=== PATIENT | male | born 1965 | race Caucasian/White ===

== ENCOUNTER → 2018-02-04 13:19 | Outpatient (REF) | payer BC, SELFPAY | LOC: LAB 13:19 | PROVIDERS: PCP Emergency Medicine; Visit Provider Emergency Medicine | DX: L02.31 Cutaneous abscess of buttock (principal) | CPT/HCPCS: 87070; 87077; 87186; 87205 ==

== ENCOUNTER 2018-03-05 15:00 | Outpatient (RCR) | payer BC, SELFPAY ==
--- NOTE | 2018-02-04 13:52 | HMH.PTOPWND ---
Rehab Outpt Wound Evaluation Rehab OP Wound Evaluation Start: 02/04/18 13:36 Freq: Status: Active Protocol: Document 02/04/18 13:36 PWARMANDO (Rec: 02/04/18 13:52 [email or web address] [id number]) Electronically Signed By Bandar Vaughn, PT 02/04/18 13:36 Subjective/History History History This is the initial OP PT wound clinic evaluation for Norbert Cortes. Pt is a 53 y/o male referred to PT for wound care on non-healing wound on L ischial tuberosity. Pt rpeorts wound has been present for several months but does not know the cause but thinks maybe the smoking bench is hard metal, and I sit on it . Pt rpeorts he chain smokes 1 1/2 packs a day on the bench. Subjective Subjective Pt does c/o pain w/ pressure Wound Eval Wound Left Lower Buttock Wound Type Pressure Ulcer Is This a Chronic Wound Yes Wound Staging Stage II Query Text:Stage I - Unbroken, red skin, no blanching. Stage II - Skin broken, superficial skin loss involving epidermis alone or also dermis. Partial loss of skin layers. Stage III - Pressure area involves epidermis, dermis and subcutaneous tissue, full thickness skin loss. Stage IV - Pressure area involves epidermis, subcutaneous tissue, bone and other supportive tissue. Full thickness skin loss with extensive destruction of underlying tissue and structures. Wound Length (cm) 2.0 Wound Width (cm) 1.5 Wound Depth (cm) 0.2 Wound Bed Appearance Dusky Red Yellow Percentage Granulated (%) 80 Percentage of Slough (%) 20 Wound Margins Description Well Defined Drainage Amount None Drainage Odor No Odor Dressing Status Changed Wound Topical Solution/Irrigant Antibiotic Irrigant Primary Dressing Hydrocolloid Wound Debridement Amount of Tissue None Removed Wound Problems/Impairments Impairments Problems/Impairmments Palpation Tenderness Impaired Sitting Wound Care Needs Subjective C/O Pain Prognosis Rehab Potential Poor Comment Pt is probabl
== END 2018-03-05 15:01 | disposition home or self-care (01) ==
LOC: PT 15:00
PROVIDERS: PCP Emergency Medicine; Visit Provider Emergency Medicine
DX: S31.829A Unspecified open wound of left buttock, initial encounter (principal)
CPT/HCPCS: 87070; 87205; 97161; 97597

== ENCOUNTER 2018-05-13 13:00 | Outpatient (RCR) | payer BC, SELFPAY ==
--- NOTE | 2018-04-22 13:24 | HMH.PTOPWND ---
Rehab Outpt Wound Evaluation Rehab OP Wound Evaluation Start: 04/22/18 13:17 Freq: Status: Active Protocol: Document 04/22/18 13:17 SHANTA (Rec: 04/22/18 13:23 SHANTA [id number]) Electronically Signed By Bandar Vaughn, PT 04/22/18 13:17 Subjective/History History History Pt reports to PT w/ c/ new wound on L buttocks. PT rpeorts wound came up a few weeks ago and it was a boil that popped - pt had a pressure sore at same spot that had healed earlier in the year. Subjective Subjective c/o pain w/ debridement - pt is a heavy smoker Wound Eval Wound Left Lower Buttock Wound Type Pressure Ulcer Wound Staging Stage II Query Text:Stage I - Unbroken, red skin, no blanching. Stage II - Skin broken, superficial skin loss involving epidermis alone or also dermis. Partial loss of skin layers. Stage III - Pressure area involves epidermis, dermis and subcutaneous tissue, full thickness skin loss. Stage IV - Pressure area involves epidermis, subcutaneous tissue, bone and other supportive tissue. Full thickness skin loss with extensive destruction of underlying tissue and structures. Wound Length (cm) 1.0 Wound Width (cm) 0.7 Wound Bed Appearance Dusky Red Percentage Granulated (%) 75 Percentage of Slough (%) 25 Percentage of Eschar (Yellow) (%) 25 Wound Margins Description Well Defined Surrounding Tissue Appearance [place] Drainage Amount None Drainage Odor No Odor Dressing Status Open to Air Primary Dressing Biosynthetic Dressing Comment purocol matrix Wound Secondary Dressing Type Film Dressing Wound Debridement Method Sharps Wound Debridement Amount of Tissue Minimal Removed Wound Debridement Result Patient Unable to Tolerate Dressing Change Date 04/22/18 Dressing Change Patient Tolerance Tolerated Well Wound Problems/Impairments Impairments Problems/Impairmments Palpation Tenderness Wound Care Needs Subjective C/O Pain Prognosis Rehab Potential Fair Clinical Impression Consistent with Diagnosis Yes Short Term Goals Number of Weeks 4 Decrease Wound Area Yes: 50%
== END 2018-05-13 13:01 | disposition home or self-care (01) ==
LOC: PT 13:00
PROVIDERS: PCP Emergency Medicine; Visit Provider Emergency Medicine
DX: S31.829A Unspecified open wound of left buttock, initial encounter (principal)
CPT/HCPCS: 97161

== ENCOUNTER → 2018-05-15 09:47 | Outpatient (CLI) | payer BC, SELFPAY ==
--- NOTE | 2018-05-15 09:51 | XR_ITS ---
XR elbow LT min 3V HISTORY: Soft tissue mass of elbow ITS.REASON: left elbow pain ORDERING PHYSICIAN: Lizandro Blackman MD PATIENT AGE: 53 years COMPARISON: None FINDINGS: No bony or joint is evident. There is prominent increase in soft tissue density involving the medial aspect of the olecranon region measuring 7.9 cm consistent with olecranon bursitis. IMPRESSION: Olecranon bursitis
== END ==
PROVIDERS: PCP Emergency Medicine; Visit Provider Orthopaedic Surgery
DX: M25.522 Pain in left elbow (principal)
CPT/HCPCS: 73080

== ENCOUNTER → 2018-06-02 09:13 | Outpatient (CLI) | payer BC, SELFPAY ==
--- NOTE | 2018-06-02 09:23 | XR_ITS ---
XR chest 2V HISTORY: Smoker, tobacco use, cough, COPD ITS.REASON: TOBACCO DEPENDENT ORDERING PHYSICIAN: Lizandro Blackman MD PATIENT AGE: 53 years COMPARISON: 05/21/2018 FINDINGS: The cardiomediastinal silhouette and pulmonary vascularity are within normal limits. Hyperinflation with attenuation of the peripheral pulmonary vessels consistent with COPD with coarsening of the bronchovascular markings as before. Calcified node is present in the right hilum. There is mild wedging of T9 as before. IMPRESSION: No change from the previous exam. COPD. Mild wedging of T9 of approximately 30%.
[2018-06-02 10:04] LABS: Basophils # 0.1 K/mm3 (0-0.2); Eosinophils # 0.2 K/mm3 (0.0-0.4); Eosinophils % 2.7 % (0.1-12.0); Hematocrit 38.6 % (42.0-52.0); Hemoglobin 12.6 g/dL (14.1-18.0); Lymphocytes # 2.2 K/mm3 (0.7-4.5); Lymphocytes % 31.3 % (10-50); Mean Corpuscular HGB Conc 32.6 g/dL (31.8-35.4); Mean Corpuscular Hemoglobin 29.5 pg (27.0-31.2); Mean Corpuscular Volume 90.5 fl (80-94); Mean Platelet Volume 7.5 fl (7.4-10.4); Monocytes # 0.5 K/mm3 (0.1-1.0); Monocytes % 7.2 % (1.7-9.3); Neutrophils % 57.7 % (37.0-80.0); Platelet Count 277 K/mm3 (142-424); Red Blood Count 4.27 M/mm3 (4.60-6.20); Red Cell Distribution Width 14.1 % (11.5-17.5); White Blood Count 6.9 K/mm3 (4.8-10.8)
[2018-06-02 10:40] LABS: Erythrocyte Sedimentation Rate 10 mm/hr (0-20)
[2018-06-02 12:04] LABS: Anion Gap 14.1 mEq/L (5-15); Blood Urea Nitrogen 9 mg/dL (7-18); C-Reactive Protein 0.3 mg/L (0.0-0.9); Calcium 8.3 mg/dL (8.5-10.1); Carbon Dioxide 25 mmol/L (21.0-32.0); Chloride 102 mmol/L (98-107); Creatinine,Serum 0.98 mg/dL (0.70-1.30); Estimated Glomerular Filt Rate 80 ml/min (>60); GFR (African American) 97 ML/MIN (>60); Glucose 88 mg/dL (74-106); Potassium 4.1 mmoL/L (3.5-5.1); Sodium 137 mmol/L (136-145)
== END ==
PROVIDERS: PCP Emergency Medicine; Visit Provider Orthopaedic Surgery
DX: Z01.818 Encounter for other preprocedural examination (principal); M70.22 Olecranon bursitis, left elbow
CPT/HCPCS: 36415; 71046; 80048; 85025; 85651; 86140; 93005

== ENCOUNTER → 2018-07-23 11:03 | Outpatient (CLI) | payer BC, MEDICAID, SELFPAY ==
[2018-07-23 11:26] LABS: Basophils # 0.1 K/mm3 (0-0.2); Basophils % 0.7 % (0.1-2.0); Eosinophils # 0.1 K/mm3 (0.0-0.4); Eosinophils % 0.9 % (0.1-12.0); Hematocrit 40.4 % (42.0-52.0); Hemoglobin 12.8 g/dL (14.1-18.0); Lymphocytes # 2.4 K/mm3 (0.7-4.5); Lymphocytes % 25.2 % (10-50); Mean Corpuscular HGB Conc 31.8 g/dL (31.8-35.4); Mean Corpuscular Hemoglobin 28.5 pg (27.0-31.2); Mean Corpuscular Volume 89.5 fl (80-94); Mean Platelet Volume 7.7 fl (7.4-10.4); Monocytes # 0.7 K/mm3 (0.1-1.0); Monocytes % 7.6 % (1.7-9.3); Neutrophils # 6.4 K/mm3 (1.8-7.8); Neutrophils % 65.7 % (37.0-80.0); Platelet Count 326 K/mm3 (142-424); Red Blood Count 4.51 M/mm3 (4.60-6.20); Red Cell Distribution Width 14.2 % (11.5-17.5); White Blood Count 9.7 K/mm3 (4.8-10.8)
[2018-07-23 12:16] LABS: C-Reactive Protein 9.1 mg/L (0.0-0.9)
[2018-07-23 12:25] LABS: Erythrocyte Sedimentation Rate 17 mm/hr (0-20)
== END ==
PROVIDERS: Visit Provider Orthopaedic Surgery
DX: M71.122 Other infective bursitis, left elbow (principal)
CPT/HCPCS: 36415; 85025; 85651; 86140; 87070; 87077; 87186; 87205

== ENCOUNTER → 2018-07-30 12:21 | Outpatient (CLI) | payer BC, MEDICAID, SELFPAY ==
[2018-07-30 13:00] LABS: Basophils # 0.1 K/mm3 (0-0.2); Basophils % 0.9 % (0.1-2.0); Eosinophils # 0.1 K/mm3 (0.0-0.4); Eosinophils % 1.5 % (0.1-12.0); Hematocrit 37.3 % (42.0-52.0); Hemoglobin 11.5 g/dL (14.1-18.0); Lymphocytes # 2.4 K/mm3 (0.7-4.5); Lymphocytes % 35.7 % (10-50); Mean Corpuscular HGB Conc 30.9 g/dL (31.8-35.4); Mean Corpuscular Hemoglobin 27.8 pg (27.0-31.2); Mean Platelet Volume 7.4 fl (7.4-10.4); Monocytes # 0.4 K/mm3 (0.1-1.0); Monocytes % 5.5 % (1.7-9.3); Neutrophils # 3.8 K/mm3 (1.8-7.8); Neutrophils % 56.4 % (37.0-80.0); Platelet Count 350 K/mm3 (142-424); Red Blood Count 4.14 M/mm3 (4.60-6.20); Red Cell Distribution Width 14.3 % (11.5-17.5); White Blood Count 6.8 K/mm3 (4.8-10.8)
[2018-07-30 13:20] LABS: C-Reactive Protein 1.4 mg/L (0.0-0.9)
[2018-07-30 13:50] LABS: Erythrocyte Sedimentation Rate 23 mm/hr (0-20)
--- NOTE | 2018-07-30 15:05 | XR_ITS ---
XR elbow LT min 3V HISTORY: Pain and swelling with limited range of motion ITS.REASON: POST OP INFECTION LT ELBOW ORDERING PHYSICIAN: Lizandro Blackman MD PATIENT AGE: 53 years COMPARISON: 05/15/2018 FINDINGS: Soft tissue swelling is present at the olecranon region. There is a small defect within the soft tissues posteriorly may be due to the drainage site. No displaced fat pad or bony erosive process. IMPRESSION: Moderate soft tissue swelling which is less prominent compared to the previous exam
[2018-07-30 16:16] LABS: Anion Gap 13.7 mEq/L (5-15); Blood Urea Nitrogen 10 mg/dL (7-18); Calcium 8.5 mg/dL (8.5-10.1); Carbon Dioxide 24 mmol/L (21.0-32.0); Chloride 103 mmol/L (98-107); Creatinine,Serum 1.06 mg/dL (0.70-1.30); Estimated Glomerular Filt Rate 73 ml/min (>60); GFR (African American) 89 ML/MIN (>60); Glucose 150 mg/dL (74-106); Potassium 4.7 mmoL/L (3.5-5.1); Sodium 136 mmol/L (136-145)
== END ==
PROVIDERS: Visit Provider Orthopaedic Surgery
DX: L08.9 Local infection of the skin and subcutaneous tissue, unspecified (principal)
CPT/HCPCS: 36415; 73080; 80048; 85025; 85651; 86140; 87070; 87077; 87186; 87205

== ENCOUNTER 2018-08-31 15:00 | Outpatient (RCR) | payer BC, SELFPAY ==
--- NOTE | 2018-08-17 15:57 | HMH.PTOPWND ---
Rehab Outpt Wound Evaluation Rehab OP Wound Evaluation Start: 08/17/18 15:47 Freq: Status: Active Protocol: Document 08/17/18 15:50 SRAVAN (Rec: 08/17/18 15:57 PHORNE [id number]) Electronically Signed By Hardeep Kwon, PT 08/17/18 15:50 Subjective/History History History Pt is 53 yowm who presents ~ 2 wks s/p left elbow I&D due to infected seroma after left olecranon bursae removal. He reports no c/o pain currently and no problems after OR. He presents with left elbow in post-op splint with moderate amt of serous drainage noted on wound dressing. PMH of seizures and is a smoker. Wound Eval Wound Left Elbow Wound Type Post-op I&D Is This a Chronic Wound No Wound Length (cm) 3.0 Wound Width (cm) 1.5 Wound Bed Appearance Beefy Red Percentage Granulated (%) 100 Wound Margins Description Well Defined Undermining Position 3 Undermining Length (cm) 2.4 Tunneling Position 12 Tunneling Depth (cm) 4.2 Drainage Description Serous Drainage Amount Moderate Packing Type Specialty Absorptive Comment Opticel Ag Primary Dressing Non-Adherent Gauze Pad Wound Secondary Dressing Type Gauze Pad Gauze Roll/Wrap Elastic Bandage Dressing Change Patient Tolerance Tolerated Well Wound Problems/Impairments Impairments Problems/Impairmments Impaired Range of Motion Impaired Strength Increased Edema Wound Care Needs Subjective C/O Pain Impaired Self Care/Self Management Prognosis Rehab Potential Fair Clinical Impression Consistent with Diagnosis Yes Short Term Goals Number of Weeks 4 Decrease Wound Area Yes: by 25% Decrease Drainage Yes: by 50% Halfway Goals Number of Weeks 8 Decrease Wound Area Yes: by 75% Decrease Drainage Yes: by 100% Patient to be Ind w/ Home Wound Care/ Yes Dressing Changes Outpatient Therapy Plan of Care Treatment Plan May Include Therapeutic Exercise Including Home Yes Exercise Program Manual Therapy Techniques Yes Neuromuscular Re-education
== END 2018-08-31 15:05 | disposition home or self-care (01) ==
LOC: PT 15:00
PROVIDERS: Visit Provider Orthopaedic Surgery
DX: M71.022 Abscess of bursa, left elbow (principal); M71.122 Other infective bursitis, left elbow
CPT/HCPCS: 97162; 97597

== ENCOUNTER → 2018-09-08 14:16 | Outpatient (CLI) | payer BC, SELFPAY ==
[2018-09-08 14:35] LABS: Basophils # 0.1 K/mm3 (0-0.2); Basophils % 1.2 % (0.1-2.0); Eosinophils # 0.1 K/mm3 (0.0-0.4); Eosinophils % 2.2 % (0.1-12.0); Hematocrit 37.8 % (42.0-52.0); Lymphocytes # 2.4 K/mm3 (0.7-4.5); Lymphocytes % 41.5 % (10-50); Mean Corpuscular HGB Conc 31.7 g/dL (31.8-35.4); Mean Corpuscular Hemoglobin 27.9 pg (27.0-31.2); Mean Corpuscular Volume 87.9 fl (80-94); Mean Platelet Volume 7.8 fl (7.4-10.4); Monocytes # 0.5 K/mm3 (0.1-1.0); Monocytes % 7.9 % (1.7-9.3); Neutrophils # 2.7 K/mm3 (1.8-7.8); Neutrophils % 47.2 % (37.0-80.0); Platelet Count 321 K/mm3 (142-424); White Blood Count 5.7 K/mm3 (4.8-10.8)
[2018-09-08 15:01] LABS: Anion Gap 14.1 mEq/L (5-15); Blood Urea Nitrogen 10 mg/dL (7-18); Calcium 8.5 mg/dL (8.5-10.1); Carbon Dioxide 23 mmol/L (21.0-32.0); Chloride 104 mmol/L (98-107); Creatinine,Serum 1.04 mg/dL (0.70-1.30); Estimated Glomerular Filt Rate 75 ml/min (>60); GFR (African American) 91 ML/MIN (>60); Glucose 114 mg/dL (74-106); Potassium 4.1 mmoL/L (3.5-5.1); Sodium 137 mmol/L (136-145)
[2018-09-08 15:17] LABS: Erythrocyte Sedimentation Rate 9 mm/hr (0-20)
== END ==
PROVIDERS: Visit Provider Orthopaedic Surgery
DX: Z01.818 Encounter for other preprocedural examination (principal); M71.122 Other infective bursitis, left elbow
CPT/HCPCS: 36415; 80048; 85025; 85651; 86140

== ENCOUNTER → 2018-10-01 10:35 | Outpatient (CLI) | payer BC, SELFPAY ==
[2018-10-01 11:22] LABS: Basophils # 0.1 K/mm3 (0-0.2); Basophils % 0.4 % (0.1-2.0); Eosinophils # 0.1 K/mm3 (0.0-0.4); Eosinophils % 1.3 % (0.1-12.0); Hematocrit 38.5 % (42.0-52.0); Hemoglobin 12.4 g/dL (14.1-18.0); Lymphocytes # 2.9 K/mm3 (0.7-4.5); Lymphocytes % 26.6 % (10-50); Mean Corpuscular HGB Conc 32.1 g/dL (31.8-35.4); Mean Corpuscular Hemoglobin 28.6 pg (27.0-31.2); Mean Corpuscular Volume 88.9 fl (80-94); Mean Platelet Volume 7.8 fl (7.4-10.4); Monocytes # 0.7 K/mm3 (0.1-1.0); Neutrophils # 7.1 K/mm3 (1.8-7.8); Neutrophils % 65.7 % (37.0-80.0); Platelet Count 288 K/mm3 (142-424); Red Blood Count 4.33 M/mm3 (4.60-6.20); Red Cell Distribution Width 15.3 % (11.5-17.5); White Blood Count 10.8 K/mm3 (4.8-10.8)
[2018-10-01 11:39] LABS: C-Reactive Protein 0.6 mg/L (0.0-0.9)
[2018-10-01 12:57] LABS: Erythrocyte Sedimentation Rate 5 mm/hr (0-20)
== END ==
PROVIDERS: Visit Provider Orthopaedic Surgery
DX: Z09 Encounter for follow-up examination after completed treatment for conditions other than malignant neoplasm (principal); M71.122 Other infective bursitis, left elbow
CPT/HCPCS: 36415; 85025; 85651; 86140

== ENCOUNTER → 2018-10-08 08:34 | Outpatient (CLI) | payer BC, SELFPAY ==
[2018-10-08 08:46] LABS: Basophils # 0.1 K/mm3 (0-0.2); Basophils % 0.9 % (0.1-2.0); Eosinophils # 0.3 K/mm3 (0.0-0.4); Hematocrit 41.5 % (42.0-52.0); Hemoglobin 13.4 g/dL (14.1-18.0); Lymphocytes # 3.5 K/mm3 (0.7-4.5); Lymphocytes % 41.5 % (10-50); Mean Corpuscular HGB Conc 32.3 g/dL (31.8-35.4); Mean Corpuscular Hemoglobin 28.8 pg (27.0-31.2); Mean Corpuscular Volume 89.2 fl (80-94); Mean Platelet Volume 7.6 fl (7.4-10.4); Monocytes # 0.5 K/mm3 (0.1-1.0); Monocytes % 5.3 % (1.7-9.3); Neutrophils # 4.2 K/mm3 (1.8-7.8); Neutrophils % 49.4 % (37.0-80.0); Platelet Count 353 K/mm3 (142-424); Red Blood Count 4.65 M/mm3 (4.60-6.20); Red Cell Distribution Width 15.5 % (11.5-17.5); White Blood Count 8.5 K/mm3 (4.8-10.8)
[2018-10-08 09:15] LABS: C-Reactive Protein < 0.2 mg/L (0.0-0.9)
[2018-10-08 09:49] LABS: Erythrocyte Sedimentation Rate 10 mm/hr (0-20)
== END ==
PROVIDERS: Visit Provider Orthopaedic Surgery
DX: T81.31XA Disruption of external operation (surgical) wound, not elsewhere classified, initial encounter (principal); Z09 Encounter for follow-up examination after completed treatment for conditions other than malignant neoplasm
CPT/HCPCS: 36415; 85025; 85651; 86140

== ENCOUNTER → 2018-10-13 15:45 | Outpatient (CLI) | payer BC, SELFPAY | PROVIDERS: Visit Provider Orthopaedic Surgery | DX: M71.122 Other infective bursitis, left elbow (principal) | CPT/HCPCS: 87070; 87075; 87205 ==

== ENCOUNTER → 2018-11-04 13:49 | Outpatient (CLI) | payer BC, SELFPAY ==
--- NOTE | 2018-11-04 14:02 | XR_ITS ---
XR elbow LT min 3V HISTORY: ITS.REASON: LT ELBOW PAIN ORDERING PHYSICIAN: Lizandro Blackman MD PATIENT AGE: 53 years COMPARISON: None FINDINGS: No bony or joint abnormality. There is increased soft tissue density along the olecranon region and on the frontal view medial to the coronoid process. IMPRESSION: No acute fracture or dislocation. Nonspecific soft tissue calcification about the elbow
[2018-11-04 15:21] LABS: Erythrocyte Sedimentation Rate 9 mm/hr (0-20)
[2018-11-04 15:34] LABS: Alanine Aminotransferase 24 U/L (12-78); Albumin Level 3.5 gm/dL (3.4-5.0); Alkaline Phosphatase 56 U/L (46-116); Anion Gap 13.6 mEq/L (5-15); Aspartate Amino Transferase 12 U/L (15-37); Bilirubin,Total 0.3 mg/dL (0.2-1.0); Blood Urea Nitrogen 11 mg/dL (7-18); C-Reactive Protein 1.6 mg/L (0.0-0.9); Calcium 9.1 mg/dL (8.5-10.1); Carbon Dioxide 25 mmol/L (21.0-32.0); Chloride 104 mmol/L (98-107); Estimated Glomerular Filt Rate 78 ml/min (>60); GFR (African American) 95 ML/MIN (>60); Globulin 3.4 gm/dl (1.3-3.2); Glucose 99 mg/dL (74-106); Potassium 4.6 mmoL/L (3.5-5.1); Sodium 138 mmol/L (136-145); Total Protein,Serum 6.9 gm/dL (6.4-8.2)
== END ==
PROVIDERS: Visit Provider Orthopaedic Surgery
DX: M71.129 Other infective bursitis, unspecified elbow (principal); Z01.818 Encounter for other preprocedural examination
CPT/HCPCS: 36415; 73080; 80053; 85651; 86140

== ENCOUNTER → 2018-11-24 10:09 | Outpatient (CLI) | payer BC, SELFPAY ==
[2018-11-24 10:34] LABS: Basophils # 0.1 K/mm3 (0-0.2); Basophils % 0.8 % (0.1-2.0); Eosinophils # 0.1 K/mm3 (0.0-0.4); Eosinophils % 1.6 % (0.1-12.0); Hematocrit 42.7 % (42.0-52.0); Hemoglobin 13.8 g/dL (14.1-18.0); Lymphocytes # 2.5 K/mm3 (0.7-4.5); Lymphocytes % 31.1 % (10-50); Mean Corpuscular HGB Conc 32.4 g/dL (31.8-35.4); Mean Corpuscular Hemoglobin 29.1 pg (27.0-31.2); Mean Corpuscular Volume 89.8 fl (80-94); Mean Platelet Volume 7.8 fl (7.4-10.4); Monocytes # 0.5 K/mm3 (0.1-1.0); Monocytes % 6.4 % (1.7-9.3); Neutrophils # 4.8 K/mm3 (1.8-7.8); Neutrophils % 60.2 % (37.0-80.0); Platelet Count 290 K/mm3 (142-424); Red Blood Count 4.76 M/mm3 (4.60-6.20); Red Cell Distribution Width 14.8 % (11.5-17.5)
[2018-11-24 11:31] LABS: Uric Acid 3.2 mg/dL (2.6-7.2)
[2018-11-24 11:34] LABS: C-Reactive Protein < 0.2 mg/L (0.0-0.9)
[2018-11-24 12:15] LABS: Erythrocyte Sedimentation Rate 4 mm/hr (0-20)
[2018-11-26 14:24] LABS: Clarity,Fluid Hazy (Clear); Color,Fluid Straw (Yellow); Eosinophils,Fluid 1 % (Not Estab.); Lymphocytes,Fluid 79 % (Not Estab.); Macrophages,Fluid 18 % (Not Estab.); Nucleated cells, Syn. Fluid 459 cells/uL (0-200); Polys,Fluid 2 % (Not Estab.); RBC,Fluid 19000 /uL (Not Estab.)
== END ==
PROVIDERS: Visit Provider Orthopaedic Surgery
DX: M71.122 Other infective bursitis, left elbow (principal)
CPT/HCPCS: 36415; 84550; 85025; 85651; 86140; 87070; 87205; 89051

== ENCOUNTER → 2020-04-13 12:28 | Outpatient (CLI) | payer BC, SELFPAY ==
--- NOTE | 2020-04-13 12:46 | MR_ITS ---
PROCEDURE: MR HEAD/BRAIN WO/W CON Referring Doctor: Jessica Martinez Patient Age:55Y CLINICAL INDICATION: seizures new onset the COMPARISON: No exams were available for comparison TECHNIQUE: Pre contrast imaging includes multiplanar imaging performed utilizing T1, T2, FLAIR imaging as well as ADC and diffusion weighted axial images on pre contrast study. The postcontrast imaging performed following 17 mL, ProHance performed in the axial and coronal plane FINDINGS: Today's MR brain reveals no mass lesions.. No abnormal areas of enhancement.. Normal anatomy. Ventricles and basal cisterns appears satisfactory. King-white matter interface overall satisfactory with no prominent findings . Region of Hippocampus and uncus appear to be maintained with at normal signal on coronal images The posterior fossa appears normal. The cranial cervical junction appears normal. Sella pituitary appears satisfactory. On close inspection note a tiny focus of increased signal at the depth of a sulcus, left parietal region precentral region. More likely this merely reflection of king matter ribbon at the base of the sulcus, rather than a subtle small white matter high signal focus (axial image 19, coronal image 15) thus not felt to be of significance Other extracranial observations: Note minimal mucosal thickening at the left mastoid tip air cells (axial image 5) barely appreciable most sequences.. Otherwise mastoid air cells elsewhere unremarkable. IAC's symmetric CP angles clear. The visualized paranasal sinuses are fairly clear with only borderline-mild mucosal thickening at the anterior ethmoid air cells. There is deviation nasal septum convexity to the left and the [id number] engorgement nasal turbinates particularly noting moderate engorgement of the inferior turbinate on the right IMPRESSION: No significant intracranial findings. . No mass lesion. No abnormal areas of enhancement.. No infarct . Minor other observations in text Dictated by: Pablo Sandoval MD 04/15/2020 11:48 Pablo Sandoval MD in [place] 04/15/2020 11:48
[2020-04-13 12:58] LABS: Blood Urea Nitrogen 14 mg/dl (9-20); Estimated Glomerular Filt Rate 78 ml/min (>60); GFR (African American) 94 ML/MIN (>60)
== END ==
PROVIDERS: Visit Provider Specialist
DX: R55 Syncope and collapse (principal); R00.9 Unspecified abnormalities of heart beat; R03.0 Elevated blood-pressure reading, without diagnosis of hypertension; I95.9 Hypotension, unspecified; R56.9 Unspecified convulsions
CPT/HCPCS: 36415; 70553; 82565; 84520; 93225; 93226; A9576

== ENCOUNTER → 2020-05-08 13:28 | Outpatient (CLI) | payer BC, SELFPAY ==
--- NOTE | 2020-05-08 13:29 | CA_ITS ---
APPROVED REPORT Power Transformer Repairer: Cara Trinidad RVT Laterality: Bilateral Study Quality: Good Indications: near syncope Risk Factors Hypertension: Hyperlipidemia Diabetes Smoking Doppler Spectral Velocity Analysis ECA (R) 87.70/17.10 cm/s ECA (L) 134.80/18.30 cm/s dICA (R) 76.40/36.00 cm/s dICA (L) 58.30/25.70 cm/s Cruz (R) 60.40/25.00 cm/s Cruz (L) 73.20/21.20 cm/s pICA (R) 57.10/21.80 cm/s pICA (L) 107.90/22.20 cm/s dCCA (R) 88.80/21.40 cm/s dCCA (L) 106.20/25.40 cm/s pCCA (R) 97.30/22.50 cm/s pCCA (L) 95.80/18.00 cm/s Vert (R) 44.40/14.60 cm/s Vert (L) 42.80/15.50 cm/s ICA/CCA 0.86 ICA/CCA 1.02 Findings Study suggests no evidence of stenosis of the right internal cartoid artery. Study suggests no evidence of stenosis of the left internal cartoid artery. Antegrade flow seen bilateral vertebral arteries. Conclusion Study suggests no evidence of stenosis of the right internal cartoid artery. Study suggests no evidence of stenosis of the left internal cartoid artery. Antegrade flow seen bilateral vertebral arteries. Electronically signed by : Jose J Henson MD 05/09/2020 17:36:24
--- NOTE | 2020-05-08 13:29 | CA_ITS ---
APPROVED REPORT EXAM: Comprehensive 2D, Doppler, and color-flow Echocardiogram Transit Worker: Lena Al CRT Ht: 6 ft 4 in Wt: 176lbs BSA: 2.10 BP: 139/63 mmHg Indications: COPD, Fatigue, Hyperlipidemia, Hypertension/HDD, GERD, ex smoker, Diabetes, tachycardia 2D Dimensions LVOT 2.11 cm (M/F) 1.5-2.5 M-Mode Dimensions RVDd 3.50 cm (0.9-2.6) LA Diam 3.52 cm (1.9-4.0) LVDd 5.89 cm (3.5-5.7) Ao Diam 4.12 cm (2.0-3.7) LVDs 3.57 cm (3.5-5.7) IVSd 1.21 cm (0.6-1.1) PWd 0.87 cm (0.6-1.1) EF (Teich) 69.10% FS 39.40% EDV (Teich) 172.50 mL ESV (Teich) 53.30 mL LV Diastology E Decel Time 123.00 (160-240 msec) E/A Ratio 0.72 MED E' 6.80 (< 7 cm/sec) E'/MED E' Ratio 7.40 (>14) LAT E' 8.50 (<10 cm/sec) E/LAT E' Ratio 5.92 (>14) Aortic Valve AI PHT 671.00 ms AO Peak GR. 9.20 mmHg Mitral Valve MV A Velocity 70.00 (40-130 cm/s) E/A Ratio 0.72 MV Decel. Time 123.00 (160-240 ms) Pulmonary Valve PV Peak Velocity 94.00 (50-150 cm/s) Tricuspid Valve TR P. Velocity 243.00 cm/s RAP Estimate 10.00 mmHg RVSP 33.60 mmHg Left Ventricle Left atrium is mildly enlarged, left ventricle is normal size, mild concentric left ventricular hypertrophy, visually estimated ejection fraction 55% with no regional wall motion abnormality, grade 1 diastolic dysfunction seen without tissue Doppler evidence of raise left atrial pressure. Right Ventricle Right atrium and right ventricle are mildly enlarged with normal contractility. Aortic Valve Aortic valve is minimally thickened and fibrosed, there is no aortic stenosis, there is mild aortic insufficiency. Mitral Valve Mitral valve is minimally thickened, there is mild mitral regurgitation. Tricuspid Valve Tricuspid valve is grossly normal, there is mild tricuspid regurgitation, tricuspid regurgitation jet velocity is inadequate for calculation of the right ventricular systolic pressure. Pulmonic Valve Pulmonic valve is poorly visualized. Great Vessels Aortic root is normal size. Pericardium No significant pericardial effusion noted. Conclusion 1. Biatrial enlargement, normal left ventricular size, mild concentric left ventricular hypertrophy, visually estimated ejection fraction 55% with no regional wall motion abnormality. Grade 1 diastolic dysfunction seen without tissue Doppler evidence of raise left atrial pressure. 2. Mildly enlarged right ventricle with normal contractility. 3. Mild aortic, mild mitral and tricuspid regurgitation. 4. No significant pericardial effusion noted. Electronically signed by : Keron Palomo, 05/08/2020 18:59:19
== END ==
PROVIDERS: PCP Emergency Medicine; Visit Provider Internal Medicine Cardiovascular Disease
DX: R55 Syncope and collapse (principal); R94.31 Abnormal electrocardiogram [ECG] [EKG]; R00.0 Tachycardia, unspecified
CPT/HCPCS: 93306; 93880

== ENCOUNTER 2020-06-01 14:40 | Emergency (ER) | payer BC, SELFPAY ==
[2020-06-01 14:47] VITALS: BP 110/68; PULSE 81; RESP 17; TEMP 36.7; O2SAT 99; BMI 21.9
--- NOTE | 2020-06-01 14:51 | XR_ITS ---
PROCEDURE: XR KNEE LT 3V CLINICAL INDICATION: FALL Pain COMPARISON: No exams were available for comparison FINDINGS: No fracture or dislocation. No lytic or blastic change. There is normal mineralization. There is ununited ossification center at the tibial tuberosity as a variant. Minimal osteoarthritic changes are present at the patellofemoral joint and there is minimal narrowing of the joint space medially. Other findings:None. IMPRESSION: Minimal osteoarthritic change Dictated by: Jose J Henson MD 06/01/2020 15:37 Jose J Henson MD in [place] 06/01/2020 15:37
--- NOTE | 2020-06-01 14:51 | XR_ITS ---
PROCEDURE: XR KNEE RT 3V CLINICAL INDICATION: FALL Right knee pain COMPARISON: CR XR KNEE LT 3V from 06/01/2020 FINDINGS: No fracture or dislocation. No lytic or blastic change. There is normal mineralization. The joint spaces are well-preserved. No significant degenerative/arthritic changes. No erosive changes evident. Other findings:None. IMPRESSION: No acute findings. Dictated by: Jose J Henson MD 06/01/2020 15:36 Jose J Henson MD in [place] 06/01/2020 15:36
--- NOTE | 2020-06-01 15:38 | HMH.EDGENADL ---
ED Disposition Clinical Impression: Fall Qualifiers: Encounter type: initial encounter Qualified Code(s): W19.XXXA - Unspecified fall, initial encounter Syncope Qualifiers: Syncope type: unspecified Qualified Code(s): R55 - Syncope and collapse Disposition: Home, Self-Care Condition on Discharge: Good Instructions: DI for Syncope in Adults (Fainting) Referrals: Harshil Grover MD [Primary Care Provider] - - Critical Care Critical Care Time: No Attestation: On 06/01/20, the high probability of a clinically significant, sudden or life threatening deterioration of the following system(s) required my full and direct attention, intervention and personal management. The time I documented below is in addition to time spent performing reported procedures but includes the following listed in this critical care notation. Medical Decision Making - Freeman Inquiry Pt receiving controlled substance: No Vital Signs: 06/01/20 14:47 06/01/20 16:11 Temperature 98.1 F Temperature Source Oral Pulse Rate [Right Brachial] 81 71 Respiratory Rate 17 Blood Pressure [Right Arm] 110/68 102/62 L Blood Pressure Mean [Right Arm] 82 75 Blood Pressure Source [Right Arm] Automatic Cuff Automatic Cuff Blood Pressure Position [Right Arm] Sitting Sitting 02 Sat by Pulse Oximetry 99 98 Oxygen Delivery Method Room Air Room Air - Lab Data Lab Results 06/01/20 15:58: WBC 9.5, RBC 4.50 L, Hgb 12.5 L, Hct 39.5 L, MCV 87.8, MCH 27.8, MCHC 31.7 L, RDW 16.9, Plt Count 234, MPV 8.8, Neut % (Auto) 63.3, Lymph % (Auto) 25.3, [place] % (Auto) 8.2, Eos % (Auto) 2.2, Baso % (Auto) 0.9, Neut # (Auto) 6.0, Lymph # (Auto) 2.4, [place] # (Auto) 0.8, Eos # (Auto) 0.2, Baso # (Auto) 0.1 06/01/20 15:58: Sodium 133 L, Potassium 4.1, Chloride 100, Carbon Dioxide 27, Anion Gap 10.1, BUN 17, Creatinine 1.10, Estimated Creat Clear 89, Estimated GFR 70, Est GFR ( Amer) 84, Glucose 111 H, Calcium 8.8, Total Bilirubin 0.4, AST 48, ALT 37, Alkaline Phosphatase 38, Troponin I < 0.01, Total Protein 6.2 L, Albumin 3.5, Globulin 2.7, Albumin/Globulin Ratio 1.3, Total Valproic Acid 36.7 L Result diagrams: 06/01/20 15:58 06/01/20 15:58 Orders (Tests/Meds): ORDERS Category Date Time Status Troponin I Q3H Lab 06/01/20 18:45 Ordered Troponin I Q3H Lab 06/01/20 21:45 Ordered - Radiology Data #1 Image(s): Knee (bilateral) Image Reviewed: Yes I reviewed the patient's radiology image Left knee shows evidence of old Alexa-Schlatter's disease. No fractures or dislocations of either knee seen. - ECG Data Tracing #1 EKG interpreted by Grupo Andrade MD: Rhythm: sinus Rate: 73 [place]: normal Ectopy: none Conduction: Right bundle branch block ST Segment Changes: none T Wave Changes: none Q Waves: none No evidence of acute ischemia or injury Prior electrocardiagrams reviewed. No change from prior tracings. General Adult HPI - General Chief complaint: Fall Stated complaint: FALL Time Seen by Provider: 06/01/20 15:30 Mode of Arrival: EMS Limitations: No Limitations Description of Symptoms (Recalled from ER Triage Doc. by RN): PATIENT REPORTS HE FELL THIS MORNING WHEN WALKING TO GET HIS MORNING MEDICATION AND IS COMPLAINING OF BILAERAL KNEE PAIN. - History of Present Illness HPI narrative: Patient is brought in by ambulance for a fall. He says that he got lightheaded, felt like he was going to pass out, and fell, injuring both knees. He then later tells me that he actually did pass out. He says Dr. Grover was there giving shots and saw it happen. He has a history of a seizure disorder but it does not think he had a seizure. His only other current complaint is low back pain, which she says is been going on for couple of months, and is not due to his fall today. He denies otherwise being ill. He did not hit his head or hurt his neck. No report of tongue biting, incontinence, or postictal state. No chest pain or shortness of br
--- NOTE | 2020-06-01 15:51 | ECG_ITS ---
APPROVED REPORT Exam: Resting ECG HR:73 bpm ECG Measurements Heart Rate 73 AXES LA 176 P 72 QRSd 148 QRS 67 QT 470 T 68 QTc 517 Conclusion Normal sinus rhythm Right bundle branch block Abnormal ECG Electronically signed by : Malik Jones, 06/02/2020 19:20:08
[2020-06-01 16:11] VITALS: BP 102/62; PULSE 71; O2SAT 98
--- NOTE | 2020-06-01 16:16 | PC.NURSE ---
Dr Bowers to come see pt in ED.
[2020-06-01 16:21] LABS: Basophils # 0.1 K/mm3 (0-0.2); Basophils % 0.9 % (0.1-2.0); Eosinophils # 0.2 K/mm3 (0.0-0.4); Eosinophils % 2.2 % (0.1-12.0); Hematocrit 39.5 % (42.0-52.0); Hemoglobin 12.5 g/dL (14.1-18.0); Lymphocytes # 2.4 K/mm3 (0.7-4.5); Lymphocytes % 25.3 % (10-50); Mean Corpuscular HGB Conc 31.7 g/dL (31.8-35.4); Mean Corpuscular Hemoglobin 27.8 pg (27.0-31.2); Mean Corpuscular Volume 87.8 fl (80-94); Mean Platelet Volume 8.8 fl (7.4-10.4); Monocytes # 0.8 K/mm3 (0.1-1.0); Monocytes % 8.2 % (1.7-9.3); Neutrophils % 63.3 % (37.0-80.0); Platelet Count 234 K/mm3 (142-424); Red Cell Distribution Width 16.9 % (11.5-17.5); White Blood Count 9.5 K/mm3 (4.8-10.8)
[2020-06-01 16:28] LABS: Alanine Aminotransferase 37 U/L (12-78); Albumin Level 3.5 g/dl (3.5-5.0); Albumin/Globulin Ratio 1.3 (1.1-1.8); Alkaline Phosphatase 38 U/L (38-126); Anion Gap 10.1 mEq/L (5-15); Aspartate Amino Transferase 48 U/L (17-59); Bilirubin,Total 0.4 mg/dl (0.2-1.3); Blood Urea Nitrogen 17 mg/dl (9-20); Calcium 8.8 mg/dl (8.4-10.2); Carbon Dioxide 27 mmol/L (22.0-30.0); Chloride 100 mmol/L (98-107); Creatinine Clearance Estimated 89 mL/min (50-200); Estimated Glomerular Filt Rate 70 ml/min (>60); GFR (African American) 84 ML/MIN (>60); Globulin 2.7 g/dL (1.3-3.2); Glucose 111 mg/dl (74-100); Potassium 4.1 mmoL/L (3.5-5.1); Sodium 133 mmol/L (136-145); Total Protein,Serum 6.2 g/dl (6.3-8.2)
[2020-06-01 16:33] LABS: Valproic Acid, (Depakene) 36.7 ug/ml (50-100)
[2020-06-01 16:43] LABS: Troponin I < 0.01 ng/ml (0.00-0.034)
[2020-06-01 17:30] VITALS: BP 117/69; PULSE 74; RESP 17; TEMP 36.7; O2SAT 99
== END 2020-06-01 18:00 | disposition home or self-care (01) ==
PROVIDERS: Emergency Provider Emergency Medicine; PCP Emergency Medicine
DX: R55 Syncope and collapse (principal); M25.561 Pain in right knee; M25.562 Pain in left knee; W01.0XXA Fall on same level from slipping, tripping and stumbling without subsequent striking against object, initial encounter; Y92.019 Unspecified place in single-family (private) house as the place of occurrence of the external cause; K21.9 Gastro-esophageal reflux disease without esophagitis; E11.9 Type 2 diabetes mellitus without complications; J44.9 Chronic obstructive pulmonary disease, unspecified; I10 Essential (primary) hypertension; G40.909 Epilepsy, unspecified, not intractable, without status epilepticus; E78.5 Hyperlipidemia, unspecified; Z87.891 Personal history of nicotine dependence; Z79.899 Other long term (current) drug therapy
CPT/HCPCS: 73562; 80053; 80164; 84484; 85025; 93005; 99283

== ENCOUNTER 2020-06-06 10:45 | Emergency (ER) | payer BC, SELFPAY ==
[2020-06-06] VITALS (7 sets, daily range): BP systolic 113–139; BP diastolic 76–90; PULSE 74–105; RESP 16–19; TEMP 36.6; O2SAT 99–100; BMI 21.7
--- NOTE | 2020-06-06 10:47 | HMH.EDGENADL ---
ED Disposition Clinical Impression: Urinary retention Adverse effects of medication Qualifiers: Encounter type: initial encounter Qualified Code(s): T50.905A - Adverse effect of unspecified drugs, medicaments and biological substances, initial encounter Disposition: Home, Self-Care Condition on Discharge: Good Additional Instructions: You have been evaluated for urinary retention. Please leave Alan catheter in place until you follow-up with Dr. Grover. Take tamsulosin. Return to the emergency department if you have any new or worsening symptoms. Prescriptions: Tamsulosin HCl [Flomax 0.4mg capsule] 0.4 mg PO HS #30 cap Transmission Status: Received by [facility] Referrals: Harshil Grover MD [Primary Care Provider] - Time of Disposition: 12:09 - Critical Care Critical Care Time: No Attestation: On , the high probability of a clinically significant, sudden or life threatening deterioration of the following system(s) required my full and direct attention, intervention and personal management. The time I documented below is in addition to time spent performing reported procedures but includes the following listed in this critical care notation. Medical Decision Making - Medical Records Medical records reviewed: Yes: I reviewed the patient's medical records. - Freeman Inquiry Pt receiving controlled substance: No Vital Signs: 06/06/20 10:46 06/06/20 11:09 06/06/20 11:30 Temperature 97.9 F Temperature Source Oral Pulse Rate Pulse Rate [Left Brachial] 105 H 101 H 86 Respiratory Rate 16 Blood Pressure Blood Pressure [Left Arm] 129/82 113/76 128/86 Blood Pressure Mean [Left Arm] 97 88 100 Blood Pressure Source Blood Pressure Source [Left Arm] Automatic Cuff Automatic Cuff Automatic Cuff Blood Pressure Position Blood Pressure Position [Left Arm] Sitting Sitting Sitting 02 Sat by Pulse Oximetry 100 100 100 Oxygen Delivery Method Room Air Room Air Room Air 06/06/20 12:00 06/06/20 13:00 06/06/20 13:30 Temperature Temperature Source Pulse Rate Pulse Rate [Left Brachial] 101 H 82 75 Respiratory Rate Blood Pressure Blood Pressure [Left Arm] 113/80 139/90 131/84 Blood Pressure Mean [Left Arm] 91 106 99 Blood Pressure Source Blood Pressure Source [Left Arm] Automatic Cuff Automatic Cuff Manual Cuff/ Doppler Blood Pressure Position Blood Pressure Position [Left Arm] Sitting Sitting Standing 02 Sat by Pulse Oximetry 100 99 100 Oxygen Delivery Method Room Air Room Air Room Air 06/06/20 13:53 Temperature 97.9 F Temperature Source Oral Pulse Rate 74 Pulse Rate [Left Brachial] Respiratory Rate 19 Blood Pressure 131/84 Blood Pressure [Left Arm] Blood Pressure Mean [Left Arm] Blood Pressure Source Automatic Cuff Blood Pressure Source [Left Arm] Blood Pressure Position Sitting Blood Pressure Position [Left Arm] 02 Sat by Pulse Oximetry Oxygen Delivery Method Room Air - Lab Data Lab Results 06/06/20 10:47: Urine Color Yellow, Urine Appearance Clear, Urine pH 6.5, Ur Specific [place] 1.010, Urine Protein Negative, Urine Glucose (UA) Negative, Urine Ketones Negative, Urine Blood Negative, Urine Nitrate Negative, Urine Bilirubin Negative, Urine Urobilinogen 2.0, Ur Leukocyte Esterase Negative, Urine RBC None, Urine WBC None, Ur Squamous Epith Cells Occasional, Urine Bacteria Trace 06/06/20 10:47: WBC 7.0, RBC 4.77, Hgb 13.5 L, Hct 42.8, MCV 89.7, MCH 28.3, MCHC 31.5 L, RDW 18.6 H, Plt Count 297, MPV 10.6 H, Neut % (Auto) 49.1, Lymph % (Auto) 39.8, [place] % (Auto) 7.0, Eos % (Auto) 2.6, Baso % (Auto) 1.5, Neut # (Auto) 3.4, Lymph # (Auto) 2.8, [place] # (Auto) 0.5, Eos # (Auto) 0.2, Baso # (Auto) 0.1 06/06/20 10:47: Sodium 135 L, Potassium 3.8, Chloride 102, Carbon Dioxide 25, Anion Gap 11.8, BUN 12, Creatinine 0.90, Estimated Creat Clear 107, Estimated GFR 88, Est GFR ( Amer) 106, Glucose 112 H, Calcium 9.6, Total Bilirubin 0.7, AST 51, ALT 38, Alkaline Phos
[2020-06-06 11:13] LABS: Microscopic, Urine URINE MICROSCOPIC (MICROSCOPIC)
[2020-06-06 11:20] LABS: Appearance,Urine CLEAR (Clear); Basophils # 0.1 K/mm3 (0-0.2); Basophils % 1.5 % (0.1-2.0); Bilirubin,Urine Negative (Negative); Blood, Urine Negative (Negative); Color,Urine YELLOW (Yellow); Eosinophils # 0.2 K/mm3 (0.0-0.4); Eosinophils % 2.6 % (0.1-12.0); Glucose,Urine (UA) Negative (Negative); Hematocrit 42.8 % (42.0-52.0); Hemoglobin 13.5 g/dL (14.1-18.0); Ketones,Urine Negative (Negative); Leukocyte Esterase,Urine Negative (Negative); Lymphocytes # 2.8 K/mm3 (0.7-4.5); Lymphocytes % 39.8 % (10-50); Mean Corpuscular HGB Conc 31.5 g/dL (31.8-35.4); Mean Corpuscular Hemoglobin 28.3 pg (27.0-31.2); Mean Corpuscular Volume 89.7 fl (80-94); Mean Platelet Volume 10.6 fl (7.4-10.4); Monocytes # 0.5 K/mm3 (0.1-1.0); Neutrophils # 3.4 K/mm3 (1.8-7.8); Neutrophils % 49.1 % (37.0-80.0); Nitrate,Urine Negative (Negative); PH,Urine 6.5 (5.0-8.5); Platelet Count 297 K/mm3 (142-424); Protein,Urine Negative (Negative); Red Blood Count 4.77 M/mm3 (4.60-6.20); Red Cell Distribution Width 18.6 % (11.5-17.5)
[2020-06-06 11:24] LABS: Chloride 102 mmol/L (98-107); Potassium 3.8 mmoL/L (3.5-5.1); Sodium 135 mmol/L (136-145)
[2020-06-06 11:27] LABS: Alanine Aminotransferase 38 U/L (12-78); Albumin Level 4.3 g/dl (3.5-5.0); Albumin/Globulin Ratio 1.3 (1.1-1.8); Alkaline Phosphatase 48 U/L (38-126); Anion Gap 11.8 mEq/L (5-15); Aspartate Amino Transferase 51 U/L (17-59); Bilirubin,Total 0.7 mg/dl (0.2-1.3); Blood Urea Nitrogen 12 mg/dl (9-20); Carbon Dioxide 25 mmol/L (22.0-30.0); Creatinine Clearance Estimated 107 mL/min (50-200); Estimated Glomerular Filt Rate 88 ml/min (>60); GFR (African American) 106 ML/MIN (>60); Globulin 3.2 g/dL (1.3-3.2); Total Protein,Serum 7.5 g/dl (6.3-8.2)
[2020-06-06 11:28] LABS: Calcium 9.6 mg/dl (8.4-10.2); Glucose 112 mg/dl (74-100)
[2020-06-06 11:41] LABS: Bacteria,Urine Trace /lpf; Squamous Epithelial Cell,Urine Occasional #/hpf (0-5)
--- NOTE | 2020-06-06 12:05 | PC.NURSE ---
at bedside doing bladder scan.
--- NOTE | 2020-06-06 13:06 | PC.NURSE ---
Pt urine output from [facility] is 750
== END 2020-06-06 13:55 | disposition home or self-care (01) ==
PROVIDERS: Emergency Provider Emergency Medicine; PCP Emergency Medicine
DX: R33.8 Other retention of urine (principal); T50.905A Adverse effect of unspecified drugs, medicaments and biological substances, initial encounter; F41.8 Other specified anxiety disorders; K21.9 Gastro-esophageal reflux disease without esophagitis; E78.5 Hyperlipidemia, unspecified; I10 Essential (primary) hypertension; F17.210 Nicotine dependence, cigarettes, uncomplicated; Z88.1 Allergy status to other antibiotic agents; Z79.899 Other long term (current) drug therapy
CPT/HCPCS: 80053; 81001; 85025; 99283

== ENCOUNTER → 2020-07-03 08:18 | Outpatient (CLI) | payer BC, SELFPAY ==
--- NOTE | 2020-07-03 08:18 | CT_ITS ---
PROCEDURE: CT CHEST WO CON CLINICAL INDICATION: unintentional weight loss, history of tobacco abus 50lb weight loss over last year former smoker no prior COMPARISON: No exams were available for comparison TECHNIQUE: Axial images obtained with sagittal and coronal reformats. All CT scans at the facility use one or more dose reduction, viz: automated exposure control, ma/kV adjustment per patient size (including targeted exams where dose is matched to indication, i.e. head), or iterative reconstruction technique. FINDINGS: There are coronary artery calcifications. No mediastinal or hilar mass or adenopathy. No evidence of aortic aneurysm. There is minimal thickening of the pericardium anteriorly. COPD with centrilobular emphysema. Scattered areas of scarring. No lobar consolidation or collapse. No central obstructing lesions. No effusions. There is mild thickening of the esophagus which is nonspecific. Upper abdominal images show a few small scattered lymph nodes in the retroperitoneum and at the celiac area. No acute bony findings. IMPRESSION: Centrilobular emphysema/COPD with scattered areas of scarring. No acute finding apparent There is mild nonspecific thickening of the esophagus. Upper endoscopy or barium swallow may provide further evaluation. Dictated by: Jose J Henson MD 07/05/2020 10:00 Jose J Henson MD in [facility] 07/05/2020 10:00
== END ==
PROVIDERS: PCP Emergency Medicine; Visit Provider Specialist
DX: R63.4 Abnormal weight loss (principal); Z87.891 Personal history of nicotine dependence
CPT/HCPCS: 71250

== ENCOUNTER → 2020-12-04 13:55 | Outpatient (POV) | payer BC, SELFPAY | PROVIDERS: Visit Provider Nurse Practitioner Family | DX: Z00.00 Encounter for general adult medical examination without abnormal findings (principal) ==

== ENCOUNTER → 2021-03-08 10:01 | Outpatient (CLI) | payer BC, MEDICAID, SELFPAY | PROVIDERS: Visit Provider Internal Medicine Gastroenterology | DX: Z01.812 Encounter for preprocedural laboratory examination (principal); Z20.822 Contact with and (suspected) exposure to COVID-19; Z12.11 Encounter for screening for malignant neoplasm of colon | CPT/HCPCS: U0003 ==